=== PATIENT | female | born 1970 | race Caucasian/White ===

== ENCOUNTER → 2016-11-10 | Outpatient (CLI) | payer BC ==
[2004-12-16 07:30] VITALS: TEMP 98
[~2016-11-10] MED LIST: PRENATAL VITAMI1 TA5 PO
== END ==
LOC: MC.RAD 11:29
DX: Z12.31 Encounter for screening mammogram for malignant neoplasm of breast (principal)

== ENCOUNTER → 2017-11-25 | Outpatient (CLI) | payer BC ==
[2004-12-16 07:30] VITALS: TEMP 98
== END ==
LOC: MC.RAD 11:09
DX: Z12.31 Encounter for screening mammogram for malignant neoplasm of breast (principal)

== ENCOUNTER → 2017-12-02 | Outpatient (CLI) | payer BC ==
[2004-12-16 07:30] VITALS: TEMP 98
== END ==
LOC: MC.RAD 12:59
DX: N64.89 Other specified disorders of breast (principal)
CPT/HCPCS: G0279

== ENCOUNTER → 2018-12-08 | Outpatient (CLI) | payer BC ==
[2004-12-16 07:30] VITALS: TEMP 98
== END ==
LOC: MC.RAD 10:57
DX: Z12.31 Encounter for screening mammogram for malignant neoplasm of breast (principal)

== ENCOUNTER → 2019-08-21 | Outpatient (CLI) | payer BC ==
[2004-12-16 07:30] VITALS: TEMP 98
== END ==
LOC: MC.RAD 18:22
DX: Z12.31 Encounter for screening mammogram for malignant neoplasm of breast (principal); Z98.82 Breast implant status

== ENCOUNTER 2021-10-10 07:43 | Day surgery (SDC) | payer BC ==
[~2021-10-10] VITALS: Ht 177.8 cm; Wt 83.3 kg
[2021-10-10 09:22] VITALS: BP 108/82; PULSE 69; TEMP 97.3
[2021-10-10 10:20] VITALS: BP 142/106; PULSE 63; TEMP 98
[2021-10-10 10:35] VITALS: BP 142/104; PULSE 60
[2021-10-10 10:50] VITALS: BP 140/99; PULSE 60
[2021-10-10 11:05] VITALS: BP 140/89; PULSE 59
== END 2021-10-10 11:34 ==
LOC: SDCO 07:43
DX: Z12.11 Encounter for screening for malignant neoplasm of colon (principal); K64.0 First degree hemorrhoids
CPT/HCPCS: J2704; J7120

== ENCOUNTER → 2021-10-24 | Outpatient (CLI) | payer BC | LOC: MC.RAD 10:58 | DX: Z12.31 Encounter for screening mammogram for malignant neoplasm of breast (principal) ==

== ENCOUNTER → 2022-11-13 | Outpatient (CLI) | payer BC ==
[2004-12-16 07:30] VITALS: TEMP 98
== END ==
LOC: MC.RAD 14:45
DX: Z12.31 Encounter for screening mammogram for malignant neoplasm of breast (principal)

== ENCOUNTER → 2023-10-21 | Outpatient (CLI) | payer BC ==
[2004-12-16 07:30] VITALS: TEMP 98
== END ==
LOC: MC.RAD 13:25
DX: Z12.31 Encounter for screening mammogram for malignant neoplasm of breast (principal); Z01.419 Encounter for gynecological examination (general) (routine) without abnormal findings